=== PATIENT | female | born 1970 | race Caucasian/White ===

== ENCOUNTER 2017-03-15 13:03 | Emergency (ER) | payer OTHER ==
[~2017-03-15] VITALS: Ht 160 cm; Wt 90.7 kg
[~2017-03-15 13:03] MED LIST: AUGMENTIN 875 M1 TAB PO; FLEXERIL10 MG PO; IBU800 MG PO; NAPROSYN 500 M500 MG PO; PERCOCET 325 MG1 TA2 PO
[2017-03-15 13:06] VITALS: BP 158/78
--- NOTE | 2017-03-15 14:47 | ED HAND/WRIST INJURY COMPLAINT ---
History of Present Illness General Chief Complaint: Hand or Wrist Injury Stated Complaint: LFT WRIST PAIN RADIATING UP ARM X2WKS Source: patient Exam Limitations: no limitations Vital Signs & Intake/Output Vital Signs & Intake/Output Vital Signs Date Time Temp Pulse Resp B/P B/P Pulse O2 O2 Flow FiO2 Mean Ox Delivery Rate 03/15 1306 97.7 85 18 158/78 97 Room Air Room Air Allergies Coded Allergies: MDX - Acetaminophen (ACETAMINOPHEN) (HIVES 03/08/15) MDX - Aspirin (ASPIRIN) (HIVES 03/08/15) MDX - Morphine (MORPHINE) (Severe, GI UPSET, . N/V 03/08/15) Reconcile Medications AMOXICILLIN/POTASSIUM CLAV (Augmentin 875-125 Tablet) 875 MG/125 MG TAB 1 TAB PO BID . CYCLOBENZAPRINE HCL (Flexeril) 10 MG TAB 1 TAB PO Q8P PRN SPASMS Ibuprofen 800 MG TABLET 1 TAB PO Q8H PRN pain Ibuprofen (Ibu) 800 MG TAB 1 TAB PO Q8HR PRN PAIN/SWELLING Naproxen (Naprosyn) 500 MG TAB 1 TAB PO BID PAIN OXYCODONE HCL/ACETAMINOPHEN (Percocet 5-325 MG Tablet) 325 MG/5 MG TAB 1 TAB PO Q4-6 PRN PRN BREAKTHROUGH PAIN OXYCODONE HCL/ACETAMINOPHEN (Percocet 5-325 MG Tablet) 325 MG/5 MG TAB 1 TAB PO Q4-6 PRN PRN PAIN Tramadol HCl 50 MG TABLET 1-2 TAB PO Q6 PRN pain Triage Note: TRIAGE: 47 Y/O FEMALE PRESENTS C/O 8/10 PAIN TO LEFT HAND PALMAR SURFACE, RADIATING UP TO LEFT SHOULDER X2 WEEKS. "IT FEELS LIKE A TOOTH ACHE IN MY HAND..." Triage Nurses Notes Reviewed? yes HPI: Patient is a 47-year-old female presents complaining of left wrist pain. Pain was intermittent for approximately 2-3 weeks and since yesterday has been continuous. Pain is an aching and sometimes sharp pain worsens with movement and palpation of the proximal palmar surface. Patient uses her hands a lot at work, denies any fall or known mechanism of injury. Pain intermittently radiates up the left upper extremity. Patient is right-hand dominant. Patient took ibuprofen 800 mg with no improvement. Patient denies numbness. (KHAI ZUNIGA,LISHA) Past History Travel History Traveled to [place] past 21 day No Medical History Any Pertinent Medical History? 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 No (LISHA MONTGOMERY) Review of Systems Review of Systems Constitutional: Denies: chills, fever. Respiratory: Reports: no symptoms. Cardiovascular: Reports: no symptoms. Musculoskeletal: Reports: see HPI. Skin: Reports: no symptoms. Neurological/Psychological: Reports: paresthesia (intermittent). Denies: numbness. Hematologic/Endocrine: Denies: bruising, bleeding. Immunologic/Allergic: Denies: splenectomy. (LISHA MONTGOMERY) Physical Exam Physical Exam General Appearance: well developed/nourished, alert, awake Head: atraumatic, normal appearance Eyes: Bilateral: normal appearance, PERRL, EOMI. Ears, Nose, Throat: hearing grossly normal Neck: normal inspection, supple, full range of motion, no midline tenderness Cardiovascular/Respiratory: no respiratory distress Back: normal inspection, normal range of motion Elbow Left: normal range of motion, normal inspection Forearm Left: normal range of motion, normal inspection Wrist Left: positive Phalen's sign, positive tinel's sign Hand Left: normal inspection, normal range of motion, point tenderness volar surface between thenar and hypothenar eminence. Full range of motion of fingers. Sensation and capillary refill grossly normal. Hand Right: normal inspection, normal range of motion Neurologic/Tendon: normal sensation, normal motor functions, normal tendon functions Skin: intact, normal color, warm/dry (LISHA MONTGOMERY) Progress Differential Diagnosis: fracture, sprain, carpal tunnel syndrome, ligamentous tear, arthritis Plan of Care: Orders Procedure Date/time Status Durable Medical Equipment 03/15 1601 Active 1605: Results of x-ray discussed with patient. Velcro wrist splint placed by nursing staff. Patient appears stable for discharge, patient instructed to follow up with hand surgery for further evaluation. (LISHA MONTGOMERY) Diagnostic Imaging: Viewed by Me: Radiology Read. Discussed w/RAD: Radiology Read. Radiology Impression: PATIENT: KENIA THOMAS PRESENT AGE: 47 PATIENT ACCOUNT NO: [id number] : 70 LOCATION: [facility] ORDERING PHYSICIAN: LISHA ZUNIGA SERVICE DATE: 03/15/17 EXAM TYPE: RAD - XRY-WRIST COMPLETE-LEFT EXAMINATION: XR WRIST, LEFT CLINICAL INFORMATION: Left wrist pain. No known injury. Presumptive diagnosis of carpal tunnel. Evaluate for arthritis. COMPARISON: None TECHNIQUE: AP, lateral, and oblique views of the left wrist. FINDINGS: No acute fracture or dislocation. There is slight widening of the scapholunate interval, suggesting scapholunate ligament tear. Bony structures are otherwise unremarkable. No significant spurring or cystic change is seen. No soft tissue calcifications are noted. IMPRESSION: 1. Suspicion of subtle scapholunate ligament tear with slight widening of the scapholunate interval seen. 2. No evidence of acute fracture or significant degenerative change. DICTATED BY: BUTCH MOSQUEDA MD DATE/TIME DICTATED:03/15/171550 [employer] TECHNICAL DIRECTOR:RICKY DATE/TIME TRANSCRIBED:1550 CONFIDENTIAL, DO NOT COPY WITHOUT APPROPRIATE AUTHORIZATION. < Electronically signed in Other Vendor System> SIGNED BY: BUTCH MOSQUEDA MD 03/15/17 1558 (LISHA MONTGOMERY) Departure Departure Time of Disposition: 1600 Disposition: HOME OR SELF CARE Condition: Stable Clinical Impression Primary Impression: Scapholunate ligament injury with no instability Secondary Impressions: Carpal tunnel syndrome of left wrist Referrals: JESSICA MOYER MD (PCP/Family) SWATHI CARMEN,AYDE Additional Instructions: Wear wrist splint for support. Follow up with Dr. Angeles(hand specialist) or with your primary doctor if no improvement within 1 week. Return to the ER if numbness, rash, fevers or worsening of symptoms. Departure Forms: Customer Survey General Discharge Information Prescriptions: Current Visit Scripts Ibuprofen 1 TAB PO Q8H PRN pain #30 TAB Tramadol HCl 1-2 TAB PO Q6 PRN pain #15 TAB (LISHA MONTGOMERY) PA/SHIPMASTER Co-Sign Statement Statement: ED Attending supervision documentation- I saw and evaluated the patient. I have also reviewed all the pertinent lab results and diagnostic results. I agree with the findings and the plan of care as documented in the PA's/SHIPMASTER's documentation. x I have reviewed the ED Record and agree with the PA's/SHIPMASTER's documentation. [] Additions or exceptions (if any) to the PAs/SHIPMASTER's note and plan are summarized below: [] (AMA CARMEN,NAYELI)
--- NOTE | 2017-03-15 15:58 | RADIOLOGY REPORT ---
EXAMINATION: XR WRIST, LEFT CLINICAL INFORMATION: Left wrist pain. No known injury. Presumptive diagnosis of carpal tunnel. Evaluate for arthritis. COMPARISON: None TECHNIQUE: AP, lateral, and oblique views of the left wrist. FINDINGS: No acute fracture or dislocation. There is slight widening of the scapholunate interval, suggesting scapholunate ligament tear. Bony structures are otherwise unremarkable. No significant spurring or cystic change is seen. No soft tissue calcifications are noted. IMPRESSION: 1. Suspicion of subtle scapholunate ligament tear with slight widening of the scapholunate interval seen. 2. No evidence of acute fracture or significant degenerative change.
[2017-03-15] MEDS ORDERED: IBUPROFEN800 M1 PO (16:02)
[2017-03-15] MEDS ORDERED: TRAMADOL HCL50 M1 PO (16:02)
== END 2017-03-15 16:22 ==
LOC: ERH 13:03
DX: S69.92XA Unspecified injury of left wrist, hand and finger(s), initial encounter (principal); G56.02 Carpal tunnel syndrome, left upper limb; X58.XXXA Exposure to other specified factors, initial encounter; Y93.9 Activity, unspecified; Y92.9 Unspecified place or not applicable
CPT/HCPCS: 73110-LT